=== PATIENT | female | born 1950 | race Caucasian/White ===

== ENCOUNTER 2018-01-30 06:16 | Day surgery (SDC) | payer MEDICARE ==
[2018-01-29 15:05] VITALS: BP 193/98
[~2018-01-30] VITALS: Ht 157.5 cm; Wt 91.6 kg
[2018-01-30] VITALS (16 sets, daily range): BP systolic 108–192; BP diastolic 54–94
[~2018-01-30 06:16] MED LIST: ALLO100T PO; ATOR20TA65 PO; CEFAZOLIN SODIUM 1 GM VIAL IVP SCH; CHOL100040 PO; HYDR25TA PO; MULT-1258 PO; NAPR-1023 PO; metoprolol PO; omega 3 krill oil PO; potassium gluconate PO; tylenol arthritis PO
[2018-01-30] MEDS ORDERED: LACTATED RINGERS 1000ML 1,000 ML IV ONE (08:07)
[2018-01-30] MEDS ORDERED: FENTANYL CITRATE PF 50 MCG/1 ML 2ML VIAL ONE (08:30)
[2018-01-30] MEDS ORDERED: PROPOFOL 10 MG/ML 20ML VIAL IV ONE (08:30)
[2018-01-30] MEDS ORDERED: MIDAZOLAM HCL 1 MG/ML 2ML VIAL ONE (08:30)
[2018-01-30] MEDS ORDERED: CEPH-578 PO (09:27)
[2018-01-30] MEDS ORDERED: TYL3 PO (09:27)
[2018-01-30] MEDS ORDERED: MORPHINE SULFATE 2 MG/ML 1ML SYG ONE (09:42)
[2018-01-30] MEDS ORDERED: HYDRALAZINE HCL 20 MG/ML VIAL ONE (09:51)
[2018-01-30] MEDS ORDERED: ONDANSETRON HCL MDV 20ML 2 MG/ML VIAL ONE (10:48)
== END 2018-01-30 11:20 | disposition home or self-care (01) ==
LOC: DAH 06:16
PROVIDERS: ATTEND Orthopaedic Surgery
DX: M23.221 Derangement of posterior horn of medial meniscus due to old tear or injury, right knee (principal); M23.251 Derangement of posterior horn of lateral meniscus due to old tear or injury, right knee; E66.9 Obesity, unspecified; M94.261 Chondromalacia, right knee; I10 Essential (primary) hypertension; M17.11 Unilateral primary osteoarthritis, right knee; Z79.82 Long term (current) use of aspirin; Z79.899 Other long term (current) drug therapy; Z88.8 Allergy status to other drugs, medicaments and biological substances; Z98.51 Tubal ligation status; Z80.9 Family history of malignant neoplasm, unspecified; Z68.37 Body mass index [BMI] 37.0-37.9, adult
CPT/HCPCS: 29880; A4218; A4606; A4649 ×2; A4930; A6223; J0360; J0690; J2250; J2704; J3010; J7120 ×2

== ENCOUNTER 2018-09-10 18:00 | Emergency (ER) | payer MEDICARE ==
[~2018-09-10 18:00] MED LIST changes: +AMLO5TAB9 PO; +ASPI-1012 PO; -CEFAZOLIN SODIUM 1 GM VIAL IVP SCH; +HYDR-4457 PO; -NAPR-1023 PO; +[UNRECOGNIZED DRUG - OTHER] PO; -tylenol arthritis PO
[2018-09-10] MEDS ORDERED: MAG HYDROX/AL HYDROX/SIMETH ES 30 ML SUSP UDCUP ONE (18:37)
[2018-09-10] MEDS ORDERED: LIDOCAINE HCL 2% VISCOUS 15 ML UDCUP ONE (18:37)
[2018-09-10 18:56] LABS: BASOPHILS % (AUTO) 0.2 % (0.0-5.0); EOSINOPHILS % (AUTO) 0.4 % (0.0-8.0); HEMATOCRIT 37.9 % (36-48); LYMPHOCYTES % (AUTO) 13.4 % (21.0-51.0); MEAN CORPUSCULAR HGB CONC 33.4 g/dL (32.0-36.0); MEAN CORPUSCULAR VOLUME 89.8 fL (79-99); MONOCYTES % (AUTO) 4.8 % (3.0-13.0); NEUTROPHILS % (AUTO) 81.2 % (40.0-77.0); PLATELET COUNT (AUTO) 291 K/uL (130-400); RED BLOOD CELL COUNT(AUTO) 4.22 MIL/uL (4.00-5.50); RED CELL DISTRIBUTION WIDTH 13.7 % (11.0-15.5); WHITE BLOOD COUNT (AUTO) 12.5 K/uL (4.8-10.8)
[2018-09-10 19:11] LABS: ALBUMIN 3.6 g/dL (3.5-5.0); BILIRUBIN,DIRECT 0.1 mg/dL (0.0-0.3); BILIRUBIN,TOTAL 0.5 mg/dL (0.2-1.0); CREATININE 0.7 mg/dL (0.5-1.5)
[2018-09-10 19:12] LABS: POTASSIUM 2.9 mmol/L (3.5-5.1)
[2018-09-10 19:32] LABS: INR 0.96 (0.85-1.15); PARTIAL THROMBOPLASTIN TIME 26.5 SEC (26.3-35.5); PROTHROMBIN TIME 10.1 SEC (9.6-11.6)
[2018-09-10 19:37] LABS: B-TYPE NATRIURETIC PEPTIDE 24 pg/mL (0-100)
[2018-09-10] MEDS ORDERED: MAGNESIUM 2GM PREMIX 50ML 50 ML IV ONE (20:06)
[2018-09-10] MEDS ORDERED: POTASSIUM BICARB/CIT AC 25 MEQ TABLET.EFF ONE (20:06)
[2018-09-10] MEDS ORDERED: NITROGLYCERIN 0.4 MG SL TAB SL ONE (20:56)
[2018-09-10] MEDS ORDERED: HYDROMORPHONE 1 MG/1 ML AMP ONE (22:15)
== END 2018-09-10 22:34 | disposition home or self-care (01) ==
LOC: EDH 18:00
DX: R13.10 Dysphagia, unspecified (principal); I10 Essential (primary) hypertension; E78.5 Hyperlipidemia, unspecified; M19.90 Unspecified osteoarthritis, unspecified site; Z98.51 Tubal ligation status; Z98.890 Other specified postprocedural states
CPT/HCPCS: 36415; 71275; 80048; 80076; 82550; 83690; 83880; 84484; 85025; 85610; 85730; 93005; 96365; 96366; 96375; 99284; J1170; J3475

== ENCOUNTER 2019-05-18 18:43 | Inpatient (IN) | payer MEDICARE ==
[~2019-05-18] VITALS: Ht 157.5 cm; Wt 86.5 kg
[2019-05-18] MEDS ORDERED: SODIUM CHLORIDE 0.9% 500ML 500 ML IV ONE (19:50)
[2019-05-18 20:12] LABS: INR 0.97 (0.85-1.15); PARTIAL THROMBOPLASTIN TIME 26.1 SEC (26.3-35.5); PROTHROMBIN TIME 10.2 SEC (9.6-11.6)
[2019-05-18 20:13] LABS: BILIRUBIN,TOTAL 0.3 mg/dL (0.2-1.0); CREATININE 0.7 mg/dL (0.5-1.5); TOTAL PROTEIN, SERUM 7.8 g/dL (6.0-8.3)
[2019-05-18 20:15] LABS: POTASSIUM 2.8 mmol/L (3.5-5.1)
[2019-05-18 20:21] LABS: B-TYPE NATRIURETIC PEPTIDE 14 pg/mL (0-100)
[2019-05-18 20:22] LABS: BASOPHILS % (AUTO) 0.8 % (0.0-5.0); EOSINOPHILS % (AUTO) 1.4 % (0.0-8.0); HEMATOCRIT 39.6 % (36-48); LYMPHOCYTES % (AUTO) 24.2 % (21.0-51.0); MEAN CORPUSCULAR HEMOGLOBIN 31.4 pg (27.0-33.0); MEAN CORPUSCULAR HGB CONC 34.3 g/dL (32.0-36.0); MEAN CORPUSCULAR VOLUME 91.4 fL (79-99); MONOCYTES % (AUTO) 7.3 % (3.0-13.0); NEUTROPHILS % (AUTO) 66.3 % (40.0-77.0); PLATELET COUNT (AUTO) 252 K/uL (130-400); RED BLOOD CELL COUNT(AUTO) 4.34 MIL/uL (4.00-5.50); RED CELL DISTRIBUTION WIDTH 13.5 % (11.0-15.5); WHITE BLOOD COUNT (AUTO) 9.6 K/uL (4.8-10.8)
[2019-05-18] MEDS ORDERED: MAGNESIUM 2GM PREMIX 50ML 50 ML IV ONE (20:46)
[2019-05-18] MEDS ORDERED: POTASSIUM BICARB/CIT AC 25 MEQ TABLET.EFF ONE (20:46)
[2019-05-18] MEDS ORDERED: POTASSIUM CHLORIDE 20MEQ/100ML 100 ML IV PRN (23:15)
[2019-05-18] MEDS ORDERED: NITROGLYCERIN 0.4 MG SL TAB SL PRN (23:15)
[2019-05-18] MEDS ORDERED: SODIUM CHLORIDE 0.9% 1000ML 1,000 ML IV SCH (23:15)
[2019-05-18] MEDS ORDERED: LIDOCAINE HCL-MPF 1% 2ML VIAL IV PRN (23:15)
[2019-05-18] MEDS ORDERED: MAGNESIUM 2GM PREMIX 50ML 50 ML IV PRN (23:15)
[2019-05-19] MEDS ORDERED: MAGN400C PO (00:13)
[2019-05-19] MEDS ORDERED: SODIUM CHLORIDE 0.9% 1000ML 1,000 ML IV ONE (01:40)
[2019-05-19 05:06] LABS: BASOPHILS % (AUTO) 0.8 % (0.0-5.0); EOSINOPHILS % (AUTO) 1.4 % (0.0-8.0); HEMATOCRIT 38.8 % (36-48); MEAN CORPUSCULAR HEMOGLOBIN 31.1 pg (27.0-33.0); MEAN CORPUSCULAR HGB CONC 34.2 g/dL (32.0-36.0); MEAN CORPUSCULAR VOLUME 91.1 fL (79-99); MONOCYTES % (AUTO) 8.9 % (3.0-13.0); NEUTROPHILS % (AUTO) 64.9 % (40.0-77.0); NUCLEATED RED BLOOD CELLS 0.1 % (0.0-0.19); PLATELET COUNT (AUTO) 229 K/uL (130-400); RED BLOOD CELL COUNT(AUTO) 4.26 MIL/uL (4.00-5.50); RED CELL DISTRIBUTION WIDTH 13.6 % (11.0-15.5); WHITE BLOOD COUNT (AUTO) 6.8 K/uL (4.8-10.8)
[2019-05-19 05:38] LABS: HEMOGLOBIN A1C 5.7 % (4.0-6.0)
[2019-05-19 05:49] LABS: ALBUMIN 3.5 g/dL (3.5-5.0); BILIRUBIN,TOTAL 0.5 mg/dL (0.2-1.0); CREATININE 0.6 mg/dL (0.5-1.5); MAGNESIUM 2.9 mg/dL (1.80-2.40); POTASSIUM 3.2 mmol/L (3.5-5.1)
[2019-05-19] MEDS ORDERED: POTASSIUM CHLORIDE 20 MEQ ERTAB PO PRN (06:45)
[2019-05-19] MEDS ORDERED: POTASSIUM CHLORIDE 10MEQ/100ML 100 ML IV PRN (06:45)
[2019-05-19] MEDS ORDERED: POTASSIUM CHLORIDE 10% ELIXIR 20 MEQ/15 ML UDCUP PO PRN (06:45)
[2019-05-19] MEDS ORDERED: LIDOCAINE HCL-MPF 1% 2ML VIAL IV PRN (06:45)
[2019-05-19] MEDS ORDERED: METOPROLOL TARTRATE 25 MG TAB PO SCH (09:00)
[2019-05-19] MEDS ORDERED: HYDROCHLOROTHIAZIDE 25 MG TABLET PO SCH (09:00)
[2019-05-19] MEDS ORDERED: POTASSIUM CHLORIDE 20 MEQ ERTAB PO SCH (09:00)
[2019-05-19] MEDS: ASPIRIN 81MG TAB.CHEW PO SCH (09:00)
[2019-05-19] MEDS: FAMOTIDINE/PF 20 MG/2 ML VIAL IV SCH ×2 (09:00→20:48)
[2019-05-19] MEDS: AMLODIPINE BESYLATE 5 MG TAB PO SCH (09:00)
[2019-05-19] MEDS ORDERED: ENOXAPARIN SODIUM 30 MG/0.3 ML SQ SCH (09:00)
[2019-05-19] MEDS ORDERED: POTASSIUM CHLORIDE 20 MEQ ERTAB PO ONE (09:26)
[2019-05-19] MEDS ORDERED: ASPIRIN 81MG TAB.CHEW ONE (09:26)
[2019-05-19] MEDS ORDERED: ATORVASTATIN CALCIUM 20 MG TABLET ONE (09:27)
[2019-05-19] MEDS ORDERED: AMLODIPINE BESYLATE 5 MG TAB PO ONE (09:27)
[2019-05-19] MEDS ORDERED: HYDROCHLOROTHIAZIDE 25 MG TABLET ONE (09:27)
[2019-05-19] MEDS ORDERED: ENOXAPARIN SODIUM 30 MG/0.3 ML SQ ONE (09:27)
[2019-05-19] MEDS ORDERED: FAMOTIDINE/PF 20 MG/2 ML VIAL IV ONE (09:28)
[2019-05-19] MEDS ORDERED: IOHEXOL-350 75 ML VIAL IV ONE (16:39)
[2019-05-19 18:07] VITALS: BP 161/82
[2019-05-19 19:00] VITALS: BP 138/66
[2019-05-19] MEDS ORDERED: ATORVASTATIN CALCIUM 20 MG TABLET PO SCH (21:00)
[2019-05-19 23:34] VITALS: BP 156/84
[2019-05-20] VITALS (10 sets, daily range): BP systolic 136–166; BP diastolic 76–89
[2019-05-20 03:53] LABS: BASOPHILS % (AUTO) 0.6 % (0.0-5.0); EOSINOPHILS % (AUTO) 1.4 % (0.0-8.0); HEMATOCRIT 38.8 % (36-48); LYMPHOCYTES % (AUTO) 24.1 % (21.0-51.0); MEAN CORPUSCULAR HEMOGLOBIN 31.7 pg (27.0-33.0); MEAN CORPUSCULAR HGB CONC 34.6 g/dL (32.0-36.0); MEAN CORPUSCULAR VOLUME 91.6 fL (79-99); MONOCYTES % (AUTO) 9.6 % (3.0-13.0); NEUTROPHILS % (AUTO) 64.3 % (40.0-77.0); PLATELET COUNT (AUTO) 225 K/uL (130-400); RED BLOOD CELL COUNT(AUTO) 4.24 MIL/uL (4.00-5.50); RED CELL DISTRIBUTION WIDTH 13.6 % (11.0-15.5); WHITE BLOOD COUNT (AUTO) 6.8 K/uL (4.8-10.8)
[2019-05-20 04:05] LABS: CREATININE 0.7 mg/dL (0.5-1.5); POTASSIUM 3.3 mmol/L (3.5-5.1)
[2019-05-20] MEDS ORDERED: HEPARIN SODIUM 1000UNIT/ML 10ML VIAL ONE (07:19)
[2019-05-20] MEDS ORDERED: IOHEXOL 350 MG/ML 100ML INFUS..BTL IV ONE (07:19)
[2019-05-20] MEDS ORDERED: IOHEXOL-350 50ML VIAL IV ONE (07:19)
[2019-05-20] MEDS ORDERED: NITROGLYCERIN 5 MG/ML 10 ML VIAL IV ONE (07:19)
[2019-05-20] MEDS ORDERED: BIVALIRUDIN 250 MG/VIAL IV ONE (07:19)
[2019-05-20] MEDS ORDERED: MIDAZOLAM HCL 1 MG/ML 2ML VIAL ONE (07:20)
[2019-05-20] MEDS ORDERED: LIDOCAINE HCL 2% 20ML ONE (07:20)
[2019-05-20] MEDS ORDERED: FENTANYL CITRATE PF 50 MCG/1 ML 2ML VIAL ONE (07:20)
[2019-05-20] MEDS ORDERED: NICARDIPINE HCL 25 MG/10 ML ML IV ONE (07:21)
[2019-05-20] MEDS ORDERED: SODIUM CHLORIDE 0.9% 500ML 500 ML IV SCH (08:45)
[2019-05-20] MEDS ORDERED: HYDROCHLOROTHIAZIDE 25 MG TABLET PO SCH (09:00)
[2019-05-20] MEDS ORDERED: SPIRONOLACTONE 25 MG TAB PO SCH (09:00)
--- NOTE | 2019-05-20 09:08 | NUR ---
RETURNED TO ROOM FROM [facility] VIA BED. AAOX3, RESP.'S EVEN AND UNLABORED. DENIES ANY SOB, DENIES ANY CURRENT PAIN. RIGHT WRIST WITH RADIAL BAND IN PLACE, BALLOON INFLATED. INSTRUCTED PT. ON RESTRICTED ACTIVITY WITH RIGHT WRIST, VERBALIZED UNDERSTANDING. BED LOW, SIDE RAILS UP X2. CALL LIGHT WITHIN REACH, VERBALIZED ABILITY TO USE. SPOUSE AT BEDSIDE.
[2019-05-20] MEDS: ASPIRIN 81MG TAB.CHEW PO SCH (10:11)
[2019-05-20] MEDS: AMLODIPINE BESYLATE 5 MG TAB PO SCH (10:11)
[2019-05-20] MEDS: POTASSIUM CHLORIDE 10% ELIXIR 20 MEQ/15 ML UDCUP PO SCH ×2 (10:13→15:38)
[2019-05-20] MEDS: FAMOTIDINE/PF 20 MG/2 ML VIAL IV SCH (10:13)
[2019-05-20] MEDS ORDERED: POTASSIUM CHLORIDE 20 MEQ ERTAB PO SCH (12:00)
--- NOTE | 2019-05-20 12:30 | NUR ---
RADIAL BAND REMOVED ORDERED. NO BLEEDING. NO HEMATOMA NOTED. APPLIED STERILE 2X2 GAUZE AND COVERED WITH CLEAR OPSITE. CALL LIGHT WITHIN REACH. SPOUSE AT BEDSIDE.
--- NOTE | 2019-05-20 16:46 | NUR ---
DC PLAN VISITED WITH PATIENT. PATIENT LIVES WITH SPOUSE. INDEPENDENT ABLE TO PERFORM ADL'S. PATIENT HAS NO SERVICES OR DME'S. FEELS SAFE TO RETURN HOME. Addendum: 05/20/19 at 1649 by CAMDEN LAWSON RN CM Amended: Links added.
[2019-05-20] MEDS ORDERED: SPIR25TA PO (17:10)
[2019-05-20] MEDS ORDERED: HYDR25TA PO (17:10)
--- NOTE | 2019-05-20 17:55 | NUR ---
HL REMOVED, CATHETER INTACT. DISCHARGE INSTRUCTIONS GIVEN TO PT., PT.'S SPOUSE AND PT.'S SON AT BEDSIDE, VERBALIZED MUTUAL UNDERSTANDING AND QUESTIONS ANSWERED. RIGHT WRIST WITH 2X2 GAUZE AND CLEAR OPSITE IN PLACE, D/I; AREA SOFT, NO ECCHYMOSIS OR HEMATOMA NOTED. REMINDED PT. OF LEFT WRIST RESTRICTION, VERBALIZED UNDERSTANDING.
== END 2019-05-20 18:15 | disposition home or self-care (01) | DRG 281 ==
LOC: EDH 18:43 → EDHIP 23:03 → 2AH 05-19 18:05
PROVIDERS: ADMIT Internal Medicine; ATTEND Internal Medicine
PROC: 4A023N7 Measurement of Cardiac Sampling and Pressure, Left Heart, Percutaneous Approach (ICD-10-PCS; principal; 2019-05-20)
PROC: B2111ZZ Fluoroscopy of Multiple Coronary Arteries using Low Osmolar Contrast (ICD-10-PCS; 2019-05-20)
PROC: B2151ZZ Fluoroscopy of Left Heart using Low Osmolar Contrast (ICD-10-PCS; 2019-05-20)
DX: I21.4 Non-ST elevation (NSTEMI) myocardial infarction (principal); Z68.41 Body mass index [BMI] 40.0-44.9, adult; E78.5 Hyperlipidemia, unspecified; E83.42 Hypomagnesemia; E87.6 Hypokalemia; I16.0 Hypertensive urgency; E66.01 Morbid (severe) obesity due to excess calories; I25.119 Atherosclerotic heart disease of native coronary artery with unspecified angina pectoris; I10 Essential (primary) hypertension; M19.90 Unspecified osteoarthritis, unspecified site; Z96.651 Presence of right artificial knee joint; Z98.51 Tubal ligation status; Z88.8 Allergy status to other drugs, medicaments and biological substances; Z79.899 Other long term (current) drug therapy; Z82.49 Family history of ischemic heart disease and other diseases of the circulatory system
CPT/HCPCS: 36415; 71045; 71275; 80048; 80053; 80061; 82550; 83036; 83735; 83880; 84443; 84484; 85025; 85378; 85610; 85730; 93005; 93306; 93458; 99156; 99157; C1769; G0378; J0583; J1644; J1650; J2250; J3010; J3475; J3480; J3490; J7030; J7040; Q9967

== ENCOUNTER → 2021-09-20 | Outpatient (CLI) | payer MEDICARE ==
[~2021-09-20] MED LIST changes: -ALLO100T PO; +AMLO-257 PO; -AMLO5TAB9 PO; -ASPI-1012 PO; -CHOL100040 PO; -HYDR-4457 PO; +MAGN400C PO; -MULT-1258 PO; +SPIR25TA PO; -[UNRECOGNIZED DRUG - OTHER] PO; -omega 3 krill oil PO
== END | disposition home or self-care (01) ==
LOC: RAH 14:07
PROVIDERS: ATTEND Orthopaedic Surgery
DX: M17.12 Unilateral primary osteoarthritis, left knee (principal); M25.462 Effusion, left knee; M25.762 Osteophyte, left knee
CPT/HCPCS: 73721

== ENCOUNTER 2024-02-25 07:09 | Emergency (ER) | payer OTHER, MEDICARE ==
[~2024-02-25] VITALS: Ht 157.5 cm; Wt 88.9 kg
[2024-02-25] MEDS: LIDOCAINE 5% TOPICAL PATCH TP ONE (08:13)
[2024-02-25 08:41] VITALS: BP 134/65; PULSE 78; RESP 18
[2024-02-25] MEDS ORDERED: MELO-106 PO (08:48)
[2024-02-25] MEDS ORDERED: LIDO1ADH14 TP (08:48)
== END 2024-02-25 09:07 | disposition home or self-care (01) ==
LOC: EDH 07:09
DX: S22.24XA Fracture of xiphoid process, initial encounter for closed fracture (principal); S80.11XA Contusion of right lower leg, initial encounter; T23.002A Burn of unspecified degree of left hand, unspecified site, initial encounter; R07.89 Other chest pain; I10 Essential (primary) hypertension; Z88.8 Allergy status to other drugs, medicaments and biological substances; Z79.899 Other long term (current) drug therapy; Z98.890 Other specified postprocedural states; V49.9XXA Car occupant (driver) (passenger) injured in unspecified traffic accident, initial encounter; Y93.89 Activity, other specified; Y92.488 Other paved roadways as the place of occurrence of the external cause; Y99.8 Other external cause status
CPT/HCPCS: 71250; 93005